=== PATIENT | female | born 2000 | race Caucasian/White ===

== ENCOUNTER 2020-08-18 07:47 | Inpatient (IN) ==
[2020-08-18] MEDS ORDERED: Famotidine 20 MG/2 ML VIAL IVP PRN (08:17)
[2020-08-18] MEDS ORDERED: *HR* FentaNYL (PF) 100 MCG/2 ML VIAL IVP PRN (08:17)
[2020-08-18] MEDS ORDERED: Metoclopramide 10 MG/2 ML VIAL IVP PRN (08:17)
[2020-08-18] MEDS ORDERED: Naloxone 0.4 MG/ML INJ IVP PRN (08:17)
[2020-08-18] MEDS ORDERED: Lidocaine 1% 20 ML MDV INFILT PRN (08:17)
[2020-08-18] MEDS ORDERED: Azithromycin 500 MG in 0.9 % Sodium Chloride 250 ML IVPB PRN (08:17)
[2020-08-18] MEDS ORDERED: miSOPROStoL 25 MCG TABLET VG PRN (08:17)
[2020-08-18 08:34] LABS: Basophils % 0.3 %; Eosinophils # 0.1 K/mcL (0.0-0.6); Eosinophils % 0.9 %; Hematocrit 36.3 % (35.3-44.9); Hemoglobin 11.6 g/dL (11.5-15.4); Immature Granulocytes % 1.1 % (0-4); Mean Corpuscular Hemoglobin 26.3 pg (28.0-33.3); Mean Corpuscular Volume 82.3 fL (83.0-100.0); Mean Platelet Volume 10.7 fL (9.4-12.4); Monocytes # 0.9 K/mcL (0.0-1.3); Monocytes % 7.6 %; Neutrophils # 8.5 K/mcL (1.6-8.9); Platelet Count 222 K/mcL (140-400); Red Blood Count 4.41 M/mcL (3.82-4.97); Red Cell Distribution Width 13.7 % (11.5-14.5); Segmented Neutrophils % 73.1 %; White Blood Count 11.6 K/mcL (4.3-11.1)
[2020-08-18] MEDS ORDERED: Ringers Solution, Lactated 1,000 ML ONE ×2 (08:39→14:55)
[2020-08-18] MEDS ORDERED: *HR* FentaNYL (PF) 100 MCG/2 ML VIAL EP ONE (08:46)
[2020-08-18] MEDS ORDERED: EPHEDrine 50 MG/ML VIAL IVP PRN (08:46)
[2020-08-18] MEDS ORDERED: Ropivacaine/PF 0.2% 20 ML VIAL EP ONE (08:46)
[2020-08-18] MEDS ORDERED: *HR* FentaNYL (PF) 250 MCG/5 ML VIAL ONE (08:49)
[2020-08-18 08:58] LABS: Amphetamine Screen,Urine Negative ng/mL (Cutoff=1000); Barbiturate Screen,Urine Negative ng/mL (Cutoff=200); Benzodiazepines Screen,Urine Negative ng/mL (Cutoff=200); Cannabinoid Screen,Urine Negative ng/mL (Cutoff = 50); Cocaine Screen,Urine Negative ng/mL (Cutoff= 300); Opiate Screen,Urine Negative ng/mL (Cutoff=300); Phencyclidine Screen,Urine Negative ng/mL (Cutoff=25)
[2020-08-18] MEDS ORDERED: Epidural Premix (fent/bupiv) 110 ML EP SCH (09:00)
[2020-08-18] MEDS ORDERED: 0.9 % Sodium Chloride 1,000 ML ONE (13:49)
[2020-08-18] MEDS: Oxytocin 20 units/ LR 1000 mL 20 UNIT/1,000 ML BAG IVC SCH ×2 (15:04→21:50)
[2020-08-18] MEDS: Ringers Solution, Lactated 1,000 ML IVC SCH ×2 (15:04→17:52)
[2020-08-18] MEDS ORDERED: *HR* FentaNYL (PF) 100 MCG/2 ML VIAL ONE ×3 (15:54→17:22)
[2020-08-18] MEDS ORDERED: Ropivacaine/PF 0.2% 20 ML VIAL ONE (16:35)
[2020-08-18] MEDS ORDERED: Lanolin 7 G OINT...G. TP PRN (21:51)
[2020-08-18] MEDS ORDERED: Oxytocin 20 units/ LR 1000 mL 20 UNIT/1,000 ML BAG IVC SCH (21:51)
[2020-08-18] MEDS ORDERED: Benzocaine/Menthol 56 GM AEROSOL SPRAY TP PRN (21:51)
[2020-08-18] MEDS ORDERED: Rho Immune Globulin 1,500 UNIT SYRINGE IM PRN (21:51)
[2020-08-18] MEDS: Ibuprofen 600 MG TABLET PO PRN (22:11)
[2020-08-19] MEDS: *HR* OxyCODONE/APAP 5/325 TABLET PO PRN ×4 (00:49→19:45)
[2020-08-19] MEDS: Ibuprofen 600 MG TABLET PO PRN ×3 (07:01→19:45)
[2020-08-19 07:51] LABS: Basophils % 0.2 %; Eosinophils # 0.1 K/mcL (0.0-0.6); Eosinophils % 0.4 %; Hematocrit 29.5 % (35.3-44.9); Immature Granulocytes % 0.7 % (0-4); Lymphocytes # 2.4 K/mcL (0.6-4.6); Lymphocytes % 12.4 %; Mean Corpuscular HGB Conc 33.2 g/dL (31.6-35.5); Mean Corpuscular Hemoglobin 27.3 pg (28.0-33.3); Mean Corpuscular Volume 82.2 fL (83.0-100.0); Mean Platelet Volume 10.9 fL (9.4-12.4); Monocytes # 1.4 K/mcL (0.0-1.3); Monocytes % 7.2 %; Platelet Count 180 K/mcL (140-400); Red Blood Count 3.59 M/mcL (3.82-4.97); Red Cell Distribution Width 13.6 % (11.5-14.5); Segmented Neutrophils % 79.1 %
[2020-08-19 07:52] LABS: Hemoglobin 9.8 g/dL (11.5-15.4); Neutrophils # 15.3 K/mcL (1.6-8.9); White Blood Count 19.3 K/mcL (4.3-11.1)
[2020-08-19] MEDS ORDERED: Prenatal Vit/FA 1 EACH TABLET PO SCH (09:00)
[2020-08-19] MEDS: Prenatal Vit/FA 1 EACH TABLET PO SCH (09:11)
[2020-08-19] MEDS: Acetaminophen 325 MG TABLET PO PRN ×2 (09:12→16:09)
[2020-08-20] MEDS: *HR* OxyCODONE/APAP 5/325 TABLET PO PRN (03:21)
[2020-08-20 08:00] VITALS: BP 111/63
[2020-08-20] MEDS: Ibuprofen 600 MG TABLET PO PRN (08:20)
[2020-08-20] MEDS: Prenatal Vit/FA 1 EACH TABLET PO SCH (08:21)
[2020-08-20] MEDS: Acetaminophen 325 MG TABLET PO PRN (13:15)
== END 2020-08-20 14:18 | disposition home or self-care (01) | DRG 542 ==
LOC: 1NENULAB 07:47 → 1NENUOBS 23:21
PROVIDERS: ADMIT Obstetrics & Gynecology; ATTEND Obstetrics & Gynecology